=== PATIENT | female | born 1955 | race Caucasian/White ===

== ENCOUNTER 2018-07-28 10:35 | Emergency (ER) | payer OTHER ==
[2018-07-28 10:42] VITALS: BP 142/98
--- NOTE | 2018-07-28 11:28 | UC ---
Throat Pain/Nasal Abraham HPI - HPI Summary HPI Summary: 62-year-old female presents with onset of left maxillary sinus pressure for the past 2 days as well as onset of mild facial swelling and tenderness to the left maxilla this morning. States she has had some cold-like symptoms for the past week including some mild nasal congestion and clear nasal drainage. Denies fever, chills, dental pain, dysphagia, ear pain, cough, chest pain, shortness of breath, abdominal pain, nausea, or vomiting. She is a half a pack a day smoker. - History of Current Complaint Chief Complaint: UCRespiratory Stated Complaint: SINUS COMPLAINT Time Seen by Provider: 07/28/18 10:58 Hx Obtained From: Patient Onset/Duration: Gradual Onset, Lasting Days Severity: Moderate Pain Intensity: 4 Cough: None Associated Signs & Symptoms: Positive: Sinus Discomfort, Nasal Discharge. Negative: Dysphagia, Wheezing, Hoarseness, Fever, Vomiting, Rash - Allergies/Home Medications Allergies/Adverse Reactions: Allergies Allergy/AdvReac Type Severity Reaction Status Date / Time amoxicillin Allergy Hives Verified 07/28/18 10:42 Penicillins Allergy Hives Verified 07/28/18 10:42 Home Medications: Home Medications Ibuprofen/Diphenhydramine Cit [Advil Pm Caplet] 1 each PO 07/28/18 [History] PMH/Surg Hx/FS Hx/Imm Hx Previously Healthy: Yes - Denies significant PMH - Surgical History Surgical History: Yes Surgery Procedure, Year, and Place: tonsilectomy. - Family History Known Family History: Positive: Non-Contributory - Social History Occupation: Works From/At Home Lives: With Family Alcohol Use: Weekly Substance Use Type: None Smoking Status (MU): Light Every Day Tobacco Smoker Type: Cigarettes Amount Used/How Often: 1/3 pack daily Review of Systems All Other Systems Reviewed And Are Negative: Yes Constitutional: Negative: Fever, Chills Skin: Negative: Rash Eyes: Negative: Drainage, Eye Redness ENT: Positive: Nasal Discharge, Sinus Congestion, Sinus Pain/Tenderness. Negative: Dental Pain, Sore Throat, Ear Ache Respiratory: Negative: Shortness Of Breath, Cough Cardiovascular: Negative: Palpitations, Chest Pain Gastrointestinal: Negative: Abdominal Pain, Vomiting, Nausea Is Patient Immunocompromised?: No Physical Exam Triage Information Reviewed: Yes Appearance: Well-Appearing, No Pain Distress, Well-Nourished Vital Signs: Initial Vital Signs Temp 98.7 F 07/28/18 10:39 Pulse 90 07/28/18 10:39 Resp 18 07/28/18 10:39 BP 142/98 07/28/18 10:39 Pulse Ox 100 07/28/18 10:39 Vital Signs Reviewed: Yes Eyes: Positive: Conjunctiva Clear. Negative: Discharge ENT: Positive: Nasal congestion, TMs normal, Sinus tenderness - Left maxillary with mild facial swelling, Uvula midline. Negative: Pharyngeal erythema - Tonsils surgically absent, Nasal drainage, Trismus, Dental tenderness Dental: Positive: Other: - Multiple dental caries and mild gingival erythema with receding gumline. No obvious abscess noted. Neck: Positive: Supple, Nontender, No Lymphadenopathy Respiratory: Positive: Lungs clear, Normal breath sounds, No respiratory distress Cardiovascular: Positive: RRR, No Murmur, Pulses Normal, Brisk Capillary Refill Abdomen Description: Positive: Nontender, No Organomegaly, Soft. Negative: Distended, Guarding Bowel Sounds: Positive: Present Neurological: Positive: Alert Skin: Negative: Rashes Throat Pain/Nasal Course/Dx - Course Course Of Treatment: 62-year-old female presents with onset of left maxillary sinus pressure for the past 2 days as well as onset of mild facial swelling and tenderness to the left maxilla this morning. States she has had some cold-like symptoms for the past week including some mild nasal congestion and clear nasal drainage. Afebrile. Exam reveals maxillary tenderness and mild swelling. She does have multiple dental caries and periodontal disease throughout but no eveidence of abscess. Will treat for an acute sinus infection with 10 day course of doxycycline as well as symptomatic treatment. She is to follow up with PCP in 7 days for reevaluation as well as schedule a dental appointment for evaluation. Warning symptoms reveiwed. Verbalizes understanding and agrees with POC. - Differential Dx/Diagnosis Differential Diagnosis/HQI/PQRI: Sinusitis, URI, Other - Dental infection Provider Diagnoses: acute left maxillary sinusitis Discharge - Sign-Out/Discharge Documenting (check all that apply): Patient Departure All imaging exams completed and their final reports reviewed: No Studies - Discharge Plan Condition: Stable Disposition: HOME Prescriptions: Doxycycline Hyclate 100 mg PO BID #20 tablet Fluticasone NASAL SPRAY 50MCG* [Flonase NASAL SPRAY 50MCG*] 2 spray BOTH NARES DAILY #1 btl Patient Education Materials: Sinusitis (ED) Referrals: No Primary Care Phys,NOPCP [Primary Care Provider] - [facility] [place] [facility] REFERRAL [Outside] Additional Instructions: Your history and exam are consistent with an acute sinus infection. With the tenderness and swelling over the left maxillary sinus we will treat you with a course of antibiotic. Start doxycycline 100 mg 1 tab twice a day for 10 days. Do not take with milk products as this can effect the absorption of the antibiotic. Be sure to complete the entire course even if you are feeling better. Use a saline rinse kit such as Neti Pot or NeilMed at least twice a day. Start fluticasone nasal spray 2 sprays each nostril once a day. Take acetaminophen (Tylenol) or ibuprofen (Advil, Motrin) according to directions as needed for fever or pain. Follow-up with your primary care provider in 7 days for recheck of symptoms. Your blood pressure was also elevated in the clinic today so you should have it rechecked at that time. I have given you the number for the [facility] Physician Referral line in case you need assistance scheduling with a provider. Since I cannot completely rule out that the facial swelling may be related to a dental infection I would recommend that you make an appointment with the dentist at the next available appointment for further evaluation. Seek immediate medical attention if you have a persistent fever greater than 100.5 F despite taking acetaminophen or ibuprofen, you have increased facial swelling, are unable to swallow, have difficulty breathing, or have any worsening of symptoms. - Billing Disposition and Condition Condition: STABLE Disposition: Home
== END 2018-07-28 11:41 | disposition home or self-care (01) ==
LOC: UCEAST 10:35
DX: J01.00 Acute maxillary sinusitis, unspecified (principal); F17.210 Nicotine dependence, cigarettes, uncomplicated; Z88.0 Allergy status to penicillin
CPT/HCPCS: 99212; G0463